=== PATIENT | male | born 1985 | race Hispanic/Latino ===

== ENCOUNTER 2020-04-09 11:40 | Emergency (ER) | payer OTHER | END 2020-04-09 12:25 | disposition left against medical advice (07) | LOC: EDH 11:40 | DX: Z53.21 Procedure and treatment not carried out due to patient leaving prior to being seen by health care provider (principal); F41.9 Anxiety disorder, unspecified; Z87.891 Personal history of nicotine dependence; Z88.8 Allergy status to other drugs, medicaments and biological substances ==